=== PATIENT | female | born 1945 | race Caucasian/White ===

== ENCOUNTER 2022-04-23 05:43 | Inpatient (IN) ==
--- NOTE | 2022-04-05 13:16 | PAT Medication Instructions ---
Medication Instructions Date of Service April 05, 2022 Home Medications acetaminophen 650 mg tablet,extended release 1,300 mg PO Q8H PRN Pain albuterol sulfate 90 mcg/actuation aerosol inhaler 1 inh inhalation Q4H PRN Shortness Of Breath biotin 10,000 mcg capsule 10,000 mcg PO HS citalopram 10 mg tablet 10 mg PO QAM gabapentin 300 mg capsule 300 mg PO TID lisinopril 2.5 mg tablet 2.5 mg PO QAM melatonin 5 mg tablet 5 mg PO HS metoprolol succinate 50 mg tablet,extended release 24 hr 50 mg PO QAM multivitamin 1 tab PO QAM simvastatin 10 mg tablet 10 mg PO HS turmeric root extract 500 mg tablet 500 mg PO QAM STOP taking 2 weeks before surgery (or as soon as possible if surgery is within 2 weeks) turmeric root extract 500 mg tablet 500 mg PO QAM DO NOT take the morning of surgery lisinopril 2.5 mg tablet 2.5 mg PO QAM multivitamin 1 tab PO QAM Take morning of surgery With a small sip of water, OTHERWISE NOTHING TO EAT OR DRINK AFTER MIDNIGHT: acetaminophen 650 mg tablet,extended release 1,300 mg PO Q8H PRN Pain (if needed) albuterol sulfate 90 mcg/actuation aerosol inhaler 1 inh inhalation Q4H PRN Shortness Of Breath (use if needed; please bring rescue inhaler with you to hospital day of surgery if possible) citalopram 10 mg tablet 10 mg PO QAM gabapentin 300 mg capsule 300 mg PO TID metoprolol succinate 50 mg tablet,extended release 24 hr 50 mg PO QAM Take evening before surgery acetaminophen 650 mg tablet,extended release 1,300 mg PO Q8H PRN Pain (if needed) albuterol sulfate 90 mcg/actuation aerosol inhaler 1 inh inhalation Q4H PRN Shortness Of Breath (if needed) biotin 10,000 mcg capsule 10,000 mcg PO HS gabapentin 300 mg capsule 300 mg PO TID melatonin 5 mg tablet 5 mg PO HS simvastatin 10 mg tablet 10 mg PO HS Other Notes If you have any questions please call us at [phone] or [phone] or [phone] or [phone]
--- NOTE | 2022-04-08 15:17 | Anesthesiology Consultation ---
Date of Service April 08, 2022 Assessment & Plan (1) Encounter for pre-operative examination: - check BSG am DOS. Outpatient joint assessment: Patient is currently scheduled for inpatient pathway. If re-evaluated pending system levels during current pandemic/surgeon requests outpatient pathway, patient is not acceptable candidate for outpatient joint program from anesthesia standpoint. Chart Review Chart Review: Patient seen in Pre Admission Testing Teaching & Discussion Pre-Anesthesia Teaching/Discussion Notes: Instructed NPO after midnight before surgery, except medications with 15 cc of water. Medication instructions provided according to the PAT guidelines. History Surgery Operation Date: 04/23/22 12:30 Proposed Procedures p Right Total Hip Arthroplasty - Cheko Paredes MD Height/Weight Height: 5 ft 3 in Weight: 120.202 kg Allergies Allergy/AdvReac Type Severity Reaction Status Date / Time No Known Allergies Allergy Verified 04/05/22 09:15 Medications Home Medications Medication Instructions Recorded Confirmed Last Taken acetaminophen 650 mg 1,300 mg PO Q8H PRN Pain 04/05/22 04/05/22 Unknown tablet,extended release albuterol sulfate 90 mcg/actuation 1 inh inhalation Q4H PRN Shortness 04/05/22 04/05/22 Unknown aerosol inhaler Of Breath biotin 10,000 mcg capsule 10,000 mcg PO HS 04/05/22 04/05/22 Unknown citalopram 10 mg tablet 10 mg PO QAM 04/05/22 04/05/22 Unknown gabapentin 300 mg capsule 300 mg PO TID 04/05/22 04/05/22 Unknown lisinopril 2.5 mg tablet 2.5 mg PO QAM 04/05/22 04/05/22 Unknown melatonin 5 mg tablet 5 mg PO HS 04/05/22 04/05/22 Unknown metoprolol succinate 50 mg 50 mg PO QAM 04/05/22 04/05/22 Unknown tablet,extended release 24 hr multivitamin 1 tab PO QAM 04/05/22 04/05/22 Unknown simvastatin 10 mg tablet 10 mg PO HS 04/05/22 04/05/22 Unknown turmeric root extract 500 mg tablet 500 mg PO QAM 04/05/22 04/05/22 Unknown Past Medical History Medical History (Updated 04/08/22 @ 15:23 by Melissa Gomez PA-C) Anxiety and depression 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 GERD (gastroesophageal reflux disease) rare, stable per pt History of dysphagia no problems in years Hx of wheezing inh prn Hyperlipidemia Hypertension controlled, stable per pt Nausea and vomiting after administration of anesthetic agent Prediabetes 5.8% a1c 01/09 Urinary incontinence "wear a pad all the time" Patient denies h/o stroke, seizures, heart attack, heart failure, blood clots or blood transfusions. Exercise / Class Metabolic Activity III < 4 Walking/Shop/Light housework (denies chest discomfort or shortness of breath with usual activities; ambulates with walker) Past Surgical History Surgical History History of esophagogastroduodenoscopy (EGD) History of open reduction and internal fixation (ORIF) procedure LT ankle History of total right knee replacement Hx laparoscopic cholecystectomy Hx of appendectomy Past Anesthesia History No Hx of Anesthesia Complications and Other (son with PONV) History of PONV No Hx of Motion Sickness and History of PONV (denies needing scop patch) Social History Smoking Status: Never smoker Do You Dip or Chew Tobacco: No Hx Alcohol Use: No Hx Substance Use: No substance use type: does not use Review of Systems Patient denies chest pain, shortness of breath, dyspnea on exertion, snoring, witnessed apneas, fever, chills, cough, wheezing, or palpitations. Physical Exam Vital Signs Vitals BP 164/89 P 72 TEMP 98.3 SP02 96% on RA RESP 18 Physical Full cervical extension range of motion without pain TMD 3.5 finger breadths Mallampati Score 3 Dentition: partial plate upper front; denies chipped or loose teeth, caps/crowns, implants or bridges Lungs: normal respiratory effort. Clear throughout to auscultation, no adventitious breath sounds Cardiac: regular rate and rhythm, no murmurs noted Carotid arteries: negative bruit bilat Lab Results Anesthesia Preop Results Results Anesthesia Widget: WBC 6.63 K/ul (4.8-10.8) 04/08/22 Hgb 14.9 g/dl (12.0-16.0) 04/08/22 Hct 44.0 % (34.1-44.9) 04/08/22 Plt 227 K/uL (130-400) 04/08/22 Na 140 mmol/L (136-145) 04/08/22 K 4.4 mmol/L (3.5-5.1) 04/08/22 Cl 104 mmol/L (98-107) 04/08/22 CO2 31 mmol/L (21-32) 04/08/22 BUN 26 mg/dl (6-23) H 04/08/22 Creat 0.92 mg/dl (0.6-1.2) 04/08/22 Glucose Level 96 mg/dl (70-99(Fasting)) 04/08/22 PT 10.6 Seconds (9.0-12.0) 04/08/22 PTT 34.6 Seconds (21.0-31.0) H 04/08/22 INR 1.0 (0.9-1.1) 04/08/22 Blood Type O Positive 04/08/22 Antibody Screen NEGATIVE 04/08/22 Testing Electrocardiogram Date: 04/08/22 NSR, rate 70 bpm Chest X-Ray Date: 04/08/22 No lines and tubes are seen. Calcified aortic knob is seen. The lungs are clear. No evidence of pleural effusion or pneumothorax. Degenerative changes are seen in the thorax. IMPRESSION: No acute chest disease. Echocardiogram Date: 10/20/18 EF 65-69% Mild cLVH No LV segmental wall motion abnormalities Basal septum is thickened and angulated consistent with sigmoid septum No significant valvular disease Grade I diastolic dysfunction Stress Test Date: 10/25/18 Pharmacologic MPHR 85% Negative for inducible ischemia EF 55-59% Normal LV wall motion Other Testing Lumbar spine x-ray 06/25/21 Five lumbar-type vertebral bodies. Grade 1 anterolisthesis of L3 on L4 and L4 on L5. Multilevel intervertebral disc degeneration, [id number] at L4-5 and L5-S1. Multilevel facet osteoarthritis, greatest near the lumbosacral junction. No fracture or aggressive osseous lesion identified. Surgical clips in the right upper abdomen. Pelvis and hips: No significant joint malalignment. Osteoarthritis of both hips, severe on the right and mild on the left. No fracture or aggressive osseous lesion identified. Sacroiliac joints are unremarkable. IMPRESSION 1. Degenerative findings as above 2. No fracture identified. COVID-19 Risk Screen Screening Information COVID-19 Screen Date: 04/08/22 Exposure 21 Days Family/Household +COVID Last 21 Days: No Exposure 10 Days Any COVID Exposure Last 10 Days: No Symptoms Last 10 Days Experienced COVID Sx Last 10 Days: No + COVID 0-90 Days COVID + in Last 0-90 Days: No
[2022-04-23] MEDS ORDERED: LR 500ML BOLUS, THEN 15ML/HR IV SCH (06:00)
[2022-04-23] MEDS ORDERED: LR 60ML/HR IV SCH (06:00)
[2022-04-23] MEDS ORDERED: TRANEXAMIC ACID 1,000 MG **IV Pre-op IV SCH (06:00)
[2022-04-23] MEDS ORDERED: FAMOTIDINE 20 MG TAB PO SCH (06:00)
[2022-04-23] MEDS ORDERED: ACETAMINOPHEN 500 MG TAB PO SCH (06:00)
[2022-04-23] MEDS ORDERED: METOCLOPRAMIDE HCL 10 MG TABLET PO SCH (06:00)
[2022-04-23] MEDS ORDERED: CeleBREX 200 MG CAP PO SCH (06:00)
[2022-04-23] MEDS ORDERED: BUPIVACAINE 0.5 % 5 MG/1 ML PF 10ML VIAL ONE (06:38)
--- NOTE | 2022-04-23 06:53 | History & Physical Bridge Note ---
Date of Service April 23, 2022 History & Physical Bridge Note I have examined the patient, reviewed the History & Physical and in the interval since the performance of the History & Physical I have noted the following changes of clinical significance: no changes noted
[2022-04-23] MEDS ORDERED: fentaNYL citrate 100 MCG/2 ML VIAL ONE (07:23)
[2022-04-23] MEDS ORDERED: MIDAZOLAM HCL 1 MG/ML 2ML VIAL ONE (07:23)
[2022-04-23] MEDS ORDERED: BUPIVACAINE/EPINEPHRINE 0.5% MPF 1:200,000 30 ML VIAL ONE (08:39)
[2022-04-23] MEDS ORDERED: ATROPINE SULFATE 0.1 MG/ML 10ML SYR IV PRN (08:43)
[2022-04-23] MEDS ORDERED: ONDANSETRON INJ 2 MG/ML 2 ML VIAL IV PRN ×2 (08:43→12:22)
[2022-04-23] MEDS ORDERED: ePHEDrine sulfate 50 MG/ML AMP IV PRN (08:43)
[2022-04-23] MEDS ORDERED: ONDANSETRON INJ 2 MG/ML 2 ML VIAL ONE (09:01)
[2022-04-23] MEDS ORDERED: DEXAMETHASONE SOD INJ 4 MG/ML VIAL ONE (09:01)
[2022-04-23] MEDS ORDERED: PROPOFOL IV EMULSION 10 MG/ML 20 ML VIAL IV ONE ×3 (09:01→12:36)
[2022-04-23] MEDS ORDERED: ePHEDrine sulfate 50 MG/ML AMP ONE ×2 (09:15→09:23)
[2022-04-23] MEDS ORDERED: PHENYLEPHRINE HCL 10 MG/ML VIAL ONE (09:23)
[2022-04-23] MEDS ORDERED: KETAMINE 50 MG/5 ML SYRINGE ONE (09:42)
--- NOTE | 2022-04-23 11:09 | Operative Report ---
PG Post Operative Report Pre & Post Diagnosis Operation Date: 04/23/22 08:50 Pre-Op Diagnosis: Right Hip Degenerative Joint Disease Post-Op Diagnosis: Right Hip Degenerative Joint Disease I identified the patient and participated in the time-out.: Yes Procedure Operation Date: 04/23/22 08:50 Actual Procedures p Right Total Hip Arthroplasty - Cheko Paredes MD Surgeon Cheko Paredes MD [employer] JULIA Varner Estimated Blood Loss 200 Findings Consistent with Post-Op Diagnosis Operative findings were advanced right hip DJD. She had grade 4 [id number] disease of the femoral head and acetabulum. Fairly small osteophytes. Moderate-sized joint effusion. Specimens Right femoral head sent for pathology Drains None Anesthesia Type Spinal MAC Complications none Disposition Accompanied Patient To Recovery: No Indications Patient 76-year-old obese female said he several year history of increasing right hip pain discomfort. She failed all conservative measures. She strongly desiring hip replacement surgery. We did talk about increased risk based on her size and BMI. She was fully aware this and want to proceed. Description of Procedure Operative implants consist of: 1 Biomet G7 size 50 mm acetabular shell. 2. 6.5 cancellous acetabular screws x135 mm length. 3. Charlotte hole biomedical engineering aide. 4. Highly cross-linked polyethylene liner with a 50 mm outer diam and 36 mm inner diameter. 5. DePuy Corail size 9 short neck 125 degree angle femoral stem. 6. +5/36 mm ceramic articular ball. Patient was taken the operating, identified, placed on the operating table supine position protectors were properly padded IV antibiotics tried by anesthesia team. A spinal anesthetic and been implemented holding area. Bennett catheter was placed in sterile fashion. Patient then placed in the left lateral decubitus position. An axillary roll was placed. Stulberg hip positioner was used for positioning. The right hip and leg were then prepped and draped in usual sterile fashion. A posterior lateral posterior right hip was then performed through a curvilinear incision centered over the greater trochanter. Sharp dissection Through subcutaneous tissue down to the IT band gluteal fascia. The soft tissue envelope was extremely thick and large. The IT band gluteal fascia was incised longitudinally in line with skin incision. The underlying greater bursa was excised. The piriformis and external rotators along with the posterior capsule of the hip were released from the posterior aspect hip joint as a single layer. Hip was internally rotated and dislocated. Great care was taken throughout the procedure protect the sciatic nerve at all times. Femoral neck osteotomy cut was made with a Final Cut about 12 mm above the lesser trochanter. Femoral head was removed and sent for pathology. The femur was retracted anteriorly. Attention drawn the acetabulum. The acetabulum was excised. Pulmonary fat was excised. Solaquin to remove the acetabular was then performed beginning with size 43 and progressing up to a 49. I believe a little bit with a 50 reamer and then placed a 50 mm cup. We worked hard to get the cup in appropriate position as she had a very large soft tissue envelope. It was fixed with a single 6.5 mm cancellous acetabular screw. Trial liner was placed. Attention drawn the femur. The proximal femur was entered with a cookie cutter followed by canal finder. I broached beginning with size 8 and progressing up to a 9. Could not quite get benign down. We trialed this and the +5 articular ball provide full stability and what appeared to be equal leg lengths and appropriate soft tissue tension. We elect to place these implants. Nupathe all trial implants were removed. Charlotte hole biomedical engineering aide was placed. Highly cross-linked polyethylene liner was placed. A size 9 carinae short neck and 25 degree angle femoral stem was impacted in position. I placed 5/36 mm ceramic articular ball was placed. Hip was located once again found to be stable. Attention drawn toward closing. Nupathe wounds irrigated cosigns. Lavage solution. We did inject locally with 60 cc of half percent Marcaine with epinephrine. Posterior capsule and external rotators were then repaired through withdrawals in the posterior trochanter with #2 Tycron suture. The IT band gluteal fascia then closed with #1 PDS suture in running fashion. Subcutaneous tissues were closed in 2 layers the deep layer using #2 Vicryl suture and subcutaneous tissues with 2-0 Dexon suture in a buried interrupted fashion the skin was closed skin sydnie. Legs then cleaned and dried a Prevena VAC. VAC dressing was placed due to the very large soft tissue envelope. The patient then transferred to the recovery in stable condition. Patient tolerated procedure well and there were no complications. Jordan Varner, my physician assistant facility manager, was present for the entire procedure. His assistance was essential and required for appropriate patient positioning, prepping and draping, surgical exposure, performing the technical details of the operation, placement the implants, closure of the wound, and placement of the sterile bandage. I attest to the content of the Intraoperative Record and any orders documented therein. Any exceptions are noted below.
--- NOTE | 2022-04-23 11:32 | XRay Report ---
XR hip 1V RT w pelvis HISTORY: 76 years-old Female IN PACU - Post Surgical right hip total joint arthroplasty COMPARISON: Hip radiographs March 29, 2022 TECHNIQUE: AP view of the pelvis with crosstable lateral view of the right hip FINDINGS: Moderate left hip osteoarthritis. Satisfactory alignment of the right hip total joint arthroplasty. E xpected soft tissue swelling with deep tissue air lateral to the proximal right femur along with skin sydnie. Urinary bladder catheter. IMPRESSION: Right hip total joint arthroplasty with expected postoperative changes. ACT 112: Negative or not required by law. The above report was generated using voice recognition software. It may contain grammatical, syntax o r spelling errors. Electronically signed by: Boo Aguirre M.D. 04/23/2022 11:30 AM
[2022-04-23] MEDS ORDERED: ALUMINUM/MAGNESIUM SUSP 30 ML UDC PO PRN (12:22)
[2022-04-23] MEDS ORDERED: NALOXONE HCL 0.4 MG/1 ML VIAL/CARP IV PRN (12:22)
[2022-04-23] MEDS ORDERED: HYDROmorphone INJ 0.5 MG/0.5 ML SYR IV PRN (12:22)
[2022-04-23] MEDS ORDERED: METOCLOPRAMIDE HCL INJ 5 MG/ML 2 ML VIAL IV PRN (12:22)
[2022-04-23] MEDS ORDERED: MAGNESIUM HYDROXIDE SUSP 30 ML UDC PO PRN (12:22)
[2022-04-23] MEDS ORDERED: ALBUTEROL HFA 8 GM INHALER INH PRN (12:22)
[2022-04-23] MEDS ORDERED: bisacodyL 10 MG SUPP PR PRN (12:22)
[2022-04-23] MEDS: SODIUM CHLORIDE 0.9% 1000ML 1,000 ML IV SCH ×2 (12:34→23:39)
--- NOTE | 2022-04-23 12:45 | Anesthesiology Progress Note ---
Date of Service April 23, 2022 Anesthesia Post Procedure Vital Signs Vital Signs: Temp Pulse Pulse Resp BP BP Pulse Ox 04/23/22 12:05 61 13 141/86 H 98 04/23/22 11:50 64 17 158/74 H 97 04/23/22 11:40 36.2 C L 67 20 130/93 97 04/23/22 11:30 67 12 136/79 97 04/23/22 11:20 70 13 148/94 H 98 04/23/22 11:10 68 15 160/88 H 98 04/23/22 11:00 36.4 C L 76 13 143/64 H 98 04/23/22 06:24 36.8 C 68 18 166/93 H 95 04/23/22 06:24 O2 Del Method O2 Flow Rate 04/23/22 12:05 Room Air 04/23/22 11:50 Room Air 04/23/22 11:40 Room Air 04/23/22 11:30 Room Air 04/23/22 11:20 Oxymask 8 04/23/22 11:10 Oxymask 8 04/23/22 11:00 Oxymask 8 04/23/22 06:24 Room Air 04/23/22 06:24 Room Air Transfer of Care Handoff Completed per policy Notes Mental Status: alert / awake / arousable and participated in evaluation Patient Amnestic to Procedure: Yes Nausea / Vomiting: adequately controlled Pain: adequately controlled Airway Patency, RR, SpO2: stable & adequate BP & HR: stable & adequate Hydration State: stable & adequate Neuraxial Anesthesia: was administered and sensory block is resolving Anesthetic Complications: no major complications apparent and Pt Satisfied with anesthetic care
[2022-04-23] MEDS: KETOROLAC TROMETHAMINE 15 MG/ML VIAL IV SCH ×2 (13:31→20:13)
[2022-04-23] MEDS: ACETAMINOPHEN 500 MG TAB PO SCH ×2 (13:31→22:33)
[2022-04-23] MEDS: traMADol HCL 50 MG TABLET PO PRN (15:28)
[2022-04-23] MEDS: ASCORBIC ACID 500 MG TAB PO SCH (16:13)
[2022-04-23] MEDS: ceFAZolin 2000MG 2,000 MG/15 ML SYR IV SCH (16:26)
--- NOTE | 2022-04-23 16:44 | Progress Notes ---
DATE OF SERVICE: 04/23/2022. SUBJECTIVE: A 76-year-old white female postoperative from right hip replacement. She is doing prett y well. Just starting to have a bit more pain. No chest pain or shortness of breath. Not feeling d aleksandra or lightheaded. OBJECTIVE: VITAL SIGNS: Temperature 36.9. Vital signs are stable. A little bit hypertensive. LUNGS: Clear to auscultation. HEART: Regular rate and rhythm. ABDOMEN: Soft, nontender, nondistended. EXTREMITIES: Grossly neurovascularly intact except as follows. Examination of the right hip and leg reveals the leg lengths are equal. Her dressings clean, dry and intact. A large soft tissue envelope. She can dorsiflex and plantarflex her foot appropriately. S he is neurologically intact. X-RAYS: X-rays of the right hip from recovery room are reviewed. It shows right uncemented hip repl acement. Components looked to be in good position. No signs of problems. ASSESSMENT: A 76-year-old morbidly obese female postoperative from a right hip replacement, doing re asonably well. Just starting to have pain. Hip is located. She is neurologically intact. PLAN: 1. DVT prophylaxis includes thigh-high TEDs, SCDs, and aspirin twice a day. 2. PT/OT, weightbear as tolerated. Right total hip protocol. 3. Pain control, doing okay with current pain regimen. We may need to adjust things as time goes on . This may help her blood pressure as well. 4. Disposition. She is hoping to be discharged to [facility], which is a [facility] facility in the [facility]. Job ID: [id number]
[2022-04-23] MEDS ORDERED: TRANEXAMIC ACID / 0.7% NACL 1,000 MG/100 ML BAG IV SCH (17:00)
[2022-04-23] MEDS: DOCUSATE SODIUM 100 MG CAP PO SCH (20:13)
[2022-04-23] MEDS: SENNA 8.6 MG TAB PO SCH (20:13)
[2022-04-23] MEDS: SIMVASTATIN 10 MG TAB PO SCH (20:13)
[2022-04-23] MEDS: ASPIRIN 81 MG ECTAB PO SCH (20:13)
[2022-04-23] MEDS: MELATONIN 3 MG TAB PO SCH (22:32)
[2022-04-24] MEDS: KETOROLAC TROMETHAMINE 15 MG/ML VIAL IV SCH ×4 (02:02→21:45)
[2022-04-24] MEDS: ceFAZolin 2000MG 2,000 MG/15 ML SYR IV SCH (02:02)
[2022-04-24] MEDS: ACETAMINOPHEN 500 MG TAB PO SCH ×3 (06:07→21:45)
[2022-04-24 06:17] LABS: Basophils # (auto) 0.02 K/uL (0-0.2); Basophils % (auto) 0.2 %; Hematocrit (blood only) 37.3 % (37.0-47.0); Hemoglobin 12.3 g/dl (12.0-16.0); Immature Granulocytes # (auto) 0.04 K/uL (0.01-0.20); Immature Granulocytes % (auto) 0.3 %; Lymphocytes # (auto) 1.17 K/uL (1.2-3.4); Mean Corpuscular Hemoglobin 31.4 pg (25.0-34.0); Mean Corpuscular Volume 95.2 fL (80.0-100.0); Mean Platelet Volume 9.9 fL (9.4-12.4); Monocytes # (auto) 1.35 K/uL (0.11-0.59); Monocytes % (auto) 11.6 %; Neutrophils # (auto) 9.08 K/uL (1.40-6.50); Neutrophils % (auto) 77.9 %; Platelet Count 210 K/uL (130-400); RDW Coefficient of Variation 13.1 % (11.5-14.5); RDW Standard Deviation 45.9 fL (36.4-46.3); Red Blood Count 3.92 M/uL (4.20-5.40); White Blood Count 11.66 K/ul (4.8-10.8)
[2022-04-24 06:39] LABS: BUN Creatinine Ratio 21.5 (10-20); Calcium 8.8 mg/dl (8.5-10.1); Creatinine Clr Calc Pharmacy 54.6 ml/min; Potassium 4.4 mmol/L (3.5-5.1)
[2022-04-24] MEDS ORDERED: dexAMETHasone 10 MG in SYRINGE 0 ML IV SCH (08:00)
[2022-04-24] MEDS: METOPROLOL SUCC 50MG EXT REL TAB PO SCH (08:00)
[2022-04-24] MEDS: MULTIVITAMIN TAB PO SCH (08:01)
[2022-04-24] MEDS: CITALOPRAM 20 MG TAB PO SCH (08:01)
[2022-04-24] MEDS: ASCORBIC ACID 500 MG TAB PO SCH ×2 (08:02→17:35)
[2022-04-24] MEDS: DOCUSATE SODIUM 100 MG CAP PO SCH ×2 (08:02→21:47)
[2022-04-24] MEDS: lisinopril 2.5 MG TAB PO SCH (08:02)
[2022-04-24] MEDS: ASPIRIN 81 MG ECTAB PO SCH ×2 (08:03→21:47)
[2022-04-24] MEDS ORDERED: NON-FORMULARY MEDICATION (Multivitamin Tablet) PO SCH (09:00)
[2022-04-24] MEDS ORDERED: NON-FORMULARY MEDICATION (Turmeric Root Extract 500 mg Tablet) PO SCH (09:00)
--- NOTE | 2022-04-24 09:17 | Progress Notes ---
DATE OF SERVICE: 04/24/2022. SUBJECTIVE: A 76-year-old white female postoperative day 1 from a right hip replacement. She is doi ng okay. Having a moderate amount of pain. No chest pain or shortness of breath. Not feeling dizzy or lightheaded. OBJECTIVE: VITAL SIGNS: Temperature is 37.0. Vital signs stable. Mild hypertension. GENERAL: Reveals the patient lying in bed, looks pretty comfortable. EXTREMITIES: Examination of the right hip reveals leg lengths are equal. Her Prevena VAC dressings in place. Her thigh is soft and supple. No significant drainage. She is neurologically intact. LABORATORY DATA: Hemoglobin 12.3. Hematocrit 37.3. Electrolytes are stable. ASSESSMENT: A 76-year-old white female postoperative day 1 from a right hip replacement, doing prett y well. Pain is controlled. Hip is located. She is neurologically intact. PLAN: 1. DVT prophylaxis includes thigh-high TEDs, SCDs, and aspirin twice a day. 2. PT/OT. She can weightbear as tolerated on this right leg as tolerated. She needs to obey hip pr ecautions. 3. Pain control, doing okay with current pain regimen. 4. Disposition: She is hoping to be discharged to [facility], which is alf facility in the [place] area. We are working on that. Job ID: [id number]
[2022-04-24] MEDS: SENNA 8.6 MG TAB PO SCH (21:46)
[2022-04-24] MEDS: MELATONIN 3 MG TAB PO SCH (21:47)
[2022-04-24] MEDS: SIMVASTATIN 10 MG TAB PO SCH (21:47)
[2022-04-25] MEDS: KETOROLAC TROMETHAMINE 15 MG/ML VIAL IV SCH ×2 (02:34→08:51)
[2022-04-25] MEDS: ACETAMINOPHEN 500 MG TAB PO SCH ×3 (06:10→22:53)
[2022-04-25] MEDS: METOPROLOL SUCC 50MG EXT REL TAB PO SCH (07:42)
[2022-04-25] MEDS: lisinopril 2.5 MG TAB PO SCH (07:42)
--- NOTE | 2022-04-25 08:26 | Progress Notes ---
DATE OF SERVICE: 04/25/2022 SUBJECTIVE: A 76-year-old white female postoperative day 2 from a right hip replacement. Fairly lar ge lady. She is doing okay. Having some diffuse right leg soreness throughout. She does not like w earing the MULUGETA stockings. OBJECTIVE: VITAL SIGNS: Temperature 36.4. Vital signs are stable. A little hypertensive at 175/91. PHYSICAL EXAMINATION: GENERAL: Shows a pleasant, elderly female. She is sitting up in her bedside chair, looks comfortabl e. EXTREMITIES: Examination of the right hip reveals the leg lengths are equal. Her dressings are kyler n, dry and intact. She has a Prevena VAC in place. Really minimal leg swelling. Mild diffuse tende rness everywhere around her leg. There are no obvious palpable localized areas of swelling or signs of cords or thrombosis. She is neurologically intact. ASSESSMENT: A 76-year-old white female postoperative day 2 from a right total hip replacement, doing reasonably well. Having some diffuse leg soreness. Really not much in the way of swelling. No sig ns of thrombosis. Her wound is healing well. She is neurologically intact. Hip is located. She is slightly hypertensive. PLAN: 1. DVT prophylaxis includes thigh-high TEDs, SCDs, and aspirin twice a day. 2. PT/OT. She can weight bear as tolerated. 3. Pain control, doing okay with current pain regimen. This may be some of the source of her hypert ension. 4. Hypertension. We will continue to watch this. Fairly mildly elevated. We may adjust her dose o f lisinopril if it continues. 5. Disposition: She is hoping to be discharged to [facility]. We are waiting for insurance mansoor luciano Job ID: [id number]
[2022-04-25] MEDS: ASCORBIC ACID 500 MG TAB PO SCH ×2 (08:49→18:14)
[2022-04-25] MEDS: ASPIRIN 81 MG ECTAB PO SCH ×2 (08:49→20:15)
[2022-04-25] MEDS: DOCUSATE SODIUM 100 MG CAP PO SCH ×2 (08:50→20:15)
[2022-04-25] MEDS: CITALOPRAM 20 MG TAB PO SCH (08:50)
[2022-04-25] MEDS: MULTIVITAMIN TAB PO SCH (08:51)
[2022-04-25] MEDS: SENNA 8.6 MG TAB PO SCH (20:14)
[2022-04-25] MEDS: MELATONIN 3 MG TAB PO SCH (20:14)
[2022-04-25] MEDS: SIMVASTATIN 10 MG TAB PO SCH (20:15)
[2022-04-26] MEDS: ACETAMINOPHEN 500 MG TAB PO SCH ×3 (06:23→21:04)
[2022-04-26] MEDS: DOCUSATE SODIUM 100 MG CAP PO SCH ×2 (08:05→21:04)
[2022-04-26] MEDS: lisinopril 2.5 MG TAB PO SCH (08:05)
[2022-04-26] MEDS: METOPROLOL SUCC 50MG EXT REL TAB PO SCH (08:05)
[2022-04-26] MEDS: ASPIRIN 81 MG ECTAB PO SCH ×2 (08:06→21:04)
[2022-04-26] MEDS: CITALOPRAM 20 MG TAB PO SCH (08:06)
[2022-04-26] MEDS: MULTIVITAMIN TAB PO SCH (08:07)
--- NOTE | 2022-04-26 08:12 | Progress Notes ---
DATE OF SERVICE: 04/26/2022 SUBJECTIVE: A 76-year-old white female postoperative day 3 from a right total hip replacement. Seem s to be getting a little bit better daily. The leg soreness has improved some. No chest pain or caleb rtness of breath. OBJECTIVE: VITAL SIGNS: Temperature 36.9. Vital signs are stable. Blood pressure still slightly high, but imp roved. PHYSICAL EXAMINATION: GENERAL: Shows a pleasant, elderly female. She is sitting up in her bedside chair. She looks prett y comfortable. EXTREMITIES: Examination of the right hip reveals the dressing to be clean, dry, and intact. The le g lengths are equal. Thigh is soft and supple. No significant swelling. She is neurologically inta ct. ASSESSMENT: A 76-year-old white female postoperative day 3 from right total hip replacement, doing r easonably well, just really waiting for placement. PLAN: 1. DVT prophylaxis to include thigh-high TEDs, SCDs, and aspirin twice a day. 2. PT, OT, and weightbear as tolerated. Right total hip protocol. 3. Pain control, doing okay with current pain regimen. 4. Hypertension, blood pressure is improving slightly. We will just continue to follow for now and treat for pain. 5. Disposition: Plan to discharge to a custodial facility if approved. Job ID: [id number]
[2022-04-26] MEDS: ASCORBIC ACID 500 MG TAB PO SCH ×2 (09:17→17:21)
[2022-04-26] MEDS: traMADol HCL 50 MG TABLET PO PRN (12:33)
[2022-04-26] MEDS: SENNA 8.6 MG TAB PO SCH (21:04)
[2022-04-26] MEDS: SIMVASTATIN 10 MG TAB PO SCH (21:04)
[2022-04-26] MEDS: MELATONIN 3 MG TAB PO SCH (21:04)
[2022-04-27] MEDS: ACETAMINOPHEN 500 MG TAB PO SCH ×2 (05:49→13:02)
[2022-04-27] MEDS: lisinopril 2.5 MG TAB PO SCH (08:09)
[2022-04-27] MEDS: ASCORBIC ACID 500 MG TAB PO SCH (08:09)
[2022-04-27] MEDS: DOCUSATE SODIUM 100 MG CAP PO SCH (08:10)
[2022-04-27] MEDS: CITALOPRAM 20 MG TAB PO SCH (08:10)
[2022-04-27] MEDS: MULTIVITAMIN TAB PO SCH (08:10)
[2022-04-27] MEDS: METOPROLOL SUCC 50MG EXT REL TAB PO SCH (08:10)
[2022-04-27] MEDS: ASPIRIN 81 MG ECTAB PO SCH (09:14)
--- NOTE | 2022-04-27 11:11 | Progress Notes ---
DATE OF SERVICE: 04/27/2022. SUBJECTIVE: A 76-year-old female, now 4 days out from a right total hip replacement. She is doing o lupillo. Getting a little bit better daily. No new complaints. Not much pain while resting, but does h ave pain with weightbearing. Denies any chest pain or shortness of breath. She does get some exerti onal shortness of breath, which is normal for her. OBJECTIVE: VITAL SIGNS: Temperature 36.9. Vital signs are stable. GENERAL: Shows a pleasant, elderly female. She is sitting up in bed and looks quite comfortable. LUNGS: Clear to auscultation. HEART: Regular rate and rhythm. ABDOMEN: Soft, nontender, nondistended. EXTREMITIES: Grossly neurovascularly intact except as follows. Examination of the right hip reveals the Prevena direct dressing to be in place. Leg lengths were eq ual. Her thigh is soft and supple. She is neurologically intact. ASSESSMENT: A 76-year-old female, postoperative day 4 from right total hip replacement, doing reason ably well. Fairly large lady and somewhat deconditioned. Medically, she appears stable. Pain is re asonably well controlled. PLAN: 1. DVT prophylaxis includes thigh-high TEDs, SCDs, and aspirin twice a day. 2. PT/OT. She can fully weightbear as tolerated on this right leg. 3. Pain control, doing okay with current pain regimen. 4. Disposition. Plan to discharge her to rehab today. Job ID: [id number]
[2022-04-27] MEDS: traMADol HCL 50 MG TABLET PO PRN (12:46)
--- NOTE | 2022-04-30 10:17 | Discharge Summary ---
Date of Service April 30, 2022 Discharge Data Procedures Performed Operation Date: 04/23/22 08:50 Actual Procedures p Right Total Hip Arthroplasty - Cheko Paredes MD Hospital Course (1) S/P total right hip arthroplasty: This is a 76 year old patient admitted on 04/23/22 and underwent total hip arthroplasty. She tolerated the procedure well and there were no complications. Transferred to the PACU post op and later to the orthopedic floor for further care. She was given ancef for antibiotic prophylaxis. She was also given MULUGETA stockings, SCDs, and aspirin for DVT prophylaxis. Hemoglobin, hematocrit, and vital signs were monitored during her hospital stay and remained stable. Did not require any blood transfusions. She did have some hypertension which did improve. There were no complications during her hospital stay. By post op day #4 the patient was tolerating a regular diet, pain was reasonably controlled with oral pain medicine, and she was participating in physical therapy. On post op day #4 the patient was discharged to a rehab facility. She was given printed discharge instructions including prescriptions for extra strength tylenol, aspirin, and tramadol. Continue physical therapy, weight bearing as tolerated. Continue MULUGETA stockings. Continue hip precautions. Follow up approximately 2 weeks post op or sooner if there are problems or concerns. Coding Level of Care Code None Diagnoses S/P total right hip arthroplasty Z96.641
== END 2022-04-27 14:02 | DRG 470 ==
LOC: ASU 05:43 → 3E 05:43
DX: Z96.651 Presence of right artificial knee joint; I10 Essential (primary) hypertension; R32 Unspecified urinary incontinence; Z79.899 Other long term (current) drug therapy; Z79.1 Long term (current) use of non-steroidal anti-inflammatories (NSAID); E66.9 Obesity, unspecified; M16.11 Unilateral primary osteoarthritis, right hip; Z68.42 Body mass index [BMI] 45.0-49.9, adult